=== PATIENT | female | born 1960 | race Caucasian/White ===

== ENCOUNTER 2017-06-04 14:00 | Emergency (ER) | payer OTHER ==
[2017-06-04 14:35] VITALS: BP 166/90; PULSE 79; TEMP 98.7; BMI 30.9
[2017-06-04] MEDS ORDERED: KETOROLAC TROMETHAMINE 30 MG/1 ML VIAL IM ONE (15:15)
--- NOTE | 2017-06-04 15:18 | PDOC ---
History of Present Illness - General Chief Complaint: Back Pain Stated Complaint: BACK PAIN Time Seen by Provider: 06/04/17 15:06 History Source: Patient Exam Limitations: No Limitations - History of Present Illness Initial Comments: 06/04/17 15:16 57 yr female with one month or more of pain to her left side shoulder and back radiates to her left chest under her breast. no chest pain no shortness of breath. pt denies any trauma. pt works as a senior quality assurance analyst, states the pain is worse with movement of the arm . 06/04/17 15:58 Severity: reports: mild Pain Location: reports: chest Method of Injury: Yes: unknown Modifying Factors: improves with: None Loss of Consciousness: no loss of consciousness Associated Symptoms (Fall): denies symptoms Past History - Past Medical History Allergies/Adverse Reactions: Allergies Allergy/AdvReac Type Severity Reaction Status Date / Time No Known Allergies Allergy Verified 06/04/17 14:31 Home Medications: Ambulatory Orders Aspirin [ASA -] 81 mg PO DAILY #30 tab.chew 03/28/14 Sitagliptin Phosphate [Januvia -] 50 mg PO ONCE #30 tablet 03/28/14 Amlodipine Besylate 10 mg PO DAILY 06/04/17 Atorvastatin Ca [Lipitor] 20 mg PO HS 06/04/17 Cyclobenzaprine HCl [Flexeril -] 5 mg PO TID PRN #21 tablet 06/04/17 Lisinopril/Hydrochlorothiazide [Lisinopril-Hctz 20-12.5 mg Tab] 1 each PO DAILY 06/04/17 Naproxen [Naprosyn -] 500 mg PO BID PRN #14 tablet 06/04/17 Diabetes: Yes HTN: Yes - Immunization History Immunization Up to Date: Yes - Suicide/Smoking/Psychosocial Hx Smoking Status: No Smoking History: Never smoked Have you smoked in the past 12 months: No Number of Cigarettes Smoked Daily: 0 Information on smoking cessation initiated: No Hx Alcohol Use: No Drug/Substance Use Hx: No Substance Use Type: None *Physical Exam - Vital Signs Last Vital Signs Temp Pulse Resp BP Pulse Ox 98.7 F 79 16 166/90 96 06/04/17 14:32 06/04/17 14:32 06/04/17 14:32 06/04/17 14:32 06/04/17 14:32 - Physical Exam General Appearance: Yes: Nourished, Appropriately Dressed HEENT: positive: EOMI, TALI, Pharynx Normal Neck: positive: Supple. negative: Tender Respiratory/Chest: positive: Lungs Clear, Normal Breath Sounds. negative: Chest Tender Cardiovascular: positive: Regular Rhythm, Regular Rate Gastrointestinal/Abdominal: positive: Normal Bowel Sounds, Soft Musculoskeletal: positive: Normal Inspection, Other (repriducable ttp to the soft tissues to the left shoulder area , trapezius radiates under left side breast ribs , skin intact no rash or redness, no crepitus ). negative: CVA Tenderness (L), Decreased Range of Motion, Muscle Spasm, Vertebral Tenderness Extremity: positive: Normal Capillary Refill, Normal Inspection, Normal Range of Motion Integumentary: positive: Normal Color, Dry, Warm Neurologic: positive: Fully Oriented, Alert, Normal Mood/Affect, Normal Response , Motor Strength 01/07 ED Treatment Course - RADIOLOGY Radiology Studies Ordered: Category Date Time Status CHEST PA & LAT [RAD] Stat Radiology 06/04/17 15:15 Ordered RIBS-LEFT SIDE [RAD] Stat Radiology 06/04/17 15:15 Ordered Medical Decision Making - Medical Decision Making 06/04/17 15:17 cc: left sided back to shoulder pain for one month or more no chest pain or fever or SOB pt saw her PMD last week for same 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 pt states she has 1/10 pain now. will dc with flexeril and nsaids. pt has apt June 16 with her PMD for follow up. *DC/Admit/Observation/Transfer Diagnosis at time of Disposition: Muscle spasm of back - Discharge Dispostion Disposition: HOME Condition at time of disposition: Good - Prescriptions Prescriptions: Cyclobenzaprine HCl [Flexeril -] 5 mg PO TID PRN #21 tablet PRN Reason: Muscle Spasms Naproxen [Naprosyn -] 500 mg PO BID PRN #14 tablet PRN Reason: Back Pain - Patient Instructions Additional Instructions: take the muscle relaxant as prescribed take naprosyn for pain as needed avoid heavy lifting or bending return to ER right away if any chest pain, shortness of breath or any worsening pain please call your doctor on Tuesday to make a follow up sooner than June 16 if you can
[2017-06-04] MEDS ORDERED: KETOROLAC TROMETHAMINE 30 MG/1 ML VIAL ONE (15:23)
== END 2017-06-04 16:13 | disposition home or self-care (01) ==
LOC: JERFT 14:00
PROC: 3E0233Z Introduction of Anti-inflammatory into Muscle, Percutaneous Approach (ICD-10-PCS; principal; 2017-06-04)
DX: M62.830 Muscle spasm of back (principal); M79.81 Nontraumatic hematoma of soft tissue; I10 Essential (primary) hypertension; E11.9 Type 2 diabetes mellitus without complications; Z79.84 Long term (current) use of oral hypoglycemic drugs
CPT/HCPCS: 71020-TC; 71101-TC; 96372; 99281-25

== ENCOUNTER 2017-08-01 08:33 | Emergency (ER) | payer OTHER ==
[2017-08-01 08:44] VITALS: TEMP 98.2; BMI 35.2
--- NOTE | 2017-08-01 08:51 | PDOC ---
Attending Attestation - Resident Resident Name: Owen Arce - HPI HPI: 08/01/17 10:50 Pt presents to the ED complaining of vertigo that is positional and accompanied by nausea without vomiting. Denies other complaints except for chest pain that has been persistent and unchanged for three months. - Physicial Exam PE: 08/01/17 10:51 Agree with resident exam. patient is neurologically intact and ambulatory with steady gait. - Medical Decision Making 08/01/17 10:51 Pt presents to the ED complaining of vertigo. Improved after meclizine. Will discharge home with instructions to follow up with his PMD. Will rx for meclizine.
--- NOTE | 2017-08-01 09:15 | PDOC ---
History of Present Illness - General Chief Complaint: Lightheaded Stated Complaint: DIZZINESS Time Seen by Provider: 08/01/17 08:48 - History of Present Illness Initial Comments: 08/01/17 08:48 Ms. Valdez is a 57 yo female w/ pmh of DM and HTN who presents c/o 1 day history of dizziness that she says feels like the world is spinning. She also reports 1 week of pain to her left upper chest for which she has previously been evaluated at [facility] (approx. 1 week ago) and told was musculoskeletal pain. On interview she also admits to a similar episode to this 3 years ago. She also relates recent urinary urgency. The patient denies chest pain, shortness of breath, headache and dizziness. Denies fever, chills, nausea, vomit, diarrhea and constipation. Denies dysuria, urgency and hematuria. Allergies: NKDA Past History - Past Medical History Allergies/Adverse Reactions: Allergies Allergy/AdvReac Type Severity Reaction Status Date / Time No Known Allergies Allergy Verified 08/01/17 08:44 Home Medications: Ambulatory Orders Aspirin [ASA -] 81 mg PO DAILY #30 tab.chew 03/28/14 Amlodipine Besylate 5 mg PO DAILY 06/04/17 Atorvastatin Ca [Lipitor] 20 mg PO HS 06/04/17 Lisinopril/Hydrochlorothiazide [Lisinopril-Hctz 20-12.5 mg Tab] 1 each PO DAILY 06/04/17 Meclizine HCl [Verticalm] 25 mg PO DAILY #7 tablet 08/01/17 Sitagliptin Phosphate [Januvia -] 100 mg PO ONCE 08/01/17 COPD: No Diabetes: Yes HTN: Yes Other medical history: vertigo - Immunization History Immunization Up to Date: Yes - Suicide/Smoking/Psychosocial Hx Smoking Status: No Smoking History: Never smoked Have you smoked in the past 12 months: No Number of Cigarettes Smoked Daily: 0 Information on smoking cessation initiated: No Hx Alcohol Use: No Drug/Substance Use Hx: No Substance Use Type: None Review of Systems - Review of Systems Comments:: 08/01/17 09:16 GENERAL/CONSTITUTIONAL: No fever or chills. No weakness. HEAD, EYES, EARS, NOSE AND THROAT: No change in vision. No ear pain or discharge. No sore throat. CARDIOVASCULAR: No chest pain or shortness of breath RESPIRATORY: No cough, wheezing, or hemoptysis. GASTROINTESTINAL: No nausea, vomiting, diarrhea or constipation. GENITOURINARY: No dysuria, frequency, or change in urination. MUSCULOSKELETAL: +Left arm/shoulder pain with movement. No joint or muscle swelling or pain. No neck or back pain. SKIN: No rash NEUROLOGIC: +Dizziness as described. No headache, vertigo, loss of consciousness , or change in strength/sensation. ENDOCRINE: No increased thirst. No abnormal weight change HEMATOLOGIC/LYMPHATIC: No anemia, easy bleeding, or history of blood clots. ALLERGIC/IMMUNOLOGIC: No hives or skin allergy. *Physical Exam - Vital Signs Last Vital Signs Temp Pulse Resp BP Pulse Ox 98.2 F 83 18 168/84 97 08/01/17 08:40 08/01/17 08:40 08/01/17 08:40 08/01/17 08:40 08/01/17 08:40 - Physical Exam Comments: 08/01/17 09:20 GENERAL: Awake, alert, and fully oriented, in no acute distress HEAD: No signs of trauma, normocephalic, atraumatic EYES: PERRLA, EOMI, sclera anicteric, conjunctiva clear ENT: Auricles normal inspection, hearing grossly normal, nares patent, oropharynx clear without exudates. Moist mucosa NECK: Normal ROM, supple, no lymphadenopathy, JVD, or masses LUNGS: No distress, speaks full sentences, clear to auscultation bilaterally HEART: Regular rate and rhythm, normal S1 and S2, no murmurs, rubs or gallops, peripheral pulses normal and equal bilaterally. ABDOMEN: Soft, nontender, normoactive bowel sounds. No guarding, no rebound. No masses EXTREMITIES: +Pain with palpation of left upper arm / shoulder. Normal inspection, Normal range of motion, no edema. No clubbing or cyanosis. NEUROLOGICAL: Cranial nerves II through XII grossly intact. Normal speech, normal gait, no focal sensorimotor deficits SKIN: Warm, Dry, normal turgor, no rashes or lesions noted. ED Treatment Course - LABORATORY CBC & Chemistry Diagram: 08/01/17 09:45 08/01/17 09:45 Medical Decision Making - Medical Decision Making 08/01/17 09:26 Ms. Valdez presents w/ acute symptoms of vertigo. Will r/o acute causes of exacerbation and treat accordingly 08/01/17 10:50 Labs grossly wnl as below. Patient had some relief w/ oral meclizine, will provide temporary Rx and have follow-up with PCP for future needs. Patient verbalized understanding. *DC/Admit/Observation/Transfer Diagnosis at time of Disposition: Vertigo - Discharge Dispostion Disposition: HOME - Prescriptions Prescriptions: Meclizine HCl [Verticalm] 25 mg PO DAILY #7 tablet - Referrals - Patient Instructions Printed Discharge Instructions: DI for Vertigo Additional Instructions: Please return if any continuation or increase in dizziness, fever, or pain. - Post Discharge Activity
[2017-08-01] MEDS ORDERED: MECLIZINE HCL 25 MG TABLET (FP) PO ONE (09:18)
[2017-08-01] MEDS ORDERED: MECLIZINE HCL 25 MG TABLET (FP) ONE (09:30)
[2017-08-01] MEDS ORDERED: MECLIZINE HCL 12.5 MG TABLET ONE (09:31)
[2017-08-01 09:50] LABS: BASOPHIL 0.8 % (0-2.0); EOSINOPHIL 0.9 % (0-4.5); MCH 28.5 pg (25.7-33.7); MCHC 33.1 g/dl (32.0-36.0); MEAN CELL VOLUME 86.1 fl (80-96); MEAN PLT VOLUME 7.3 fl (7.5-11.1); NEUTROPHILS 71.2 % (42.8-82.8); PLATELET COUNT 331 K/MM3 (134-434)
[2017-08-01 10:15] LABS: ALBUMIN 4.2 g/dl (3.4-5.0); ANION GAP 6 (8-16); BILIRUBIN,TOTAL 0.6 mg/dL (0.2-1.0); CO2 31 mmol/L (21-32); CREATININE 0.6 mg/dL (0.55-1.02); GLUCOSE,RANDOM 182 mg/dL (74-106); SGOT/AST 18 U/L (15-37); SGPT/ALT 33 U/L (12-78); TOT PROT 8.4 g/dl (6.4-8.2)
[2017-08-01 10:18] LABS: ALK PHOS 125 U/L (45-117); CPK 67 IU/L (26-192); TROPONIN I < 0.02 ng/ml (0.00-0.05)
[2017-08-01 10:21] LABS: URINE APPEARANCE CLEAR; URINE BILIRUBIN NEGATIVE (NEGATIVE); URINE BLOOD NEGATIVE (NEGATIVE); URINE COLOR STRAW; URINE GLUCOSE (UA) NEGATIVE (NEGATIVE); URINE KETONE NEGATIVE (NEGATIVE); URINE NITRITE NEGATIVE (NEGATIVE); URINE PROTEIN NEGATIVE (NEGATIVE); URINE UROBILINOGEN NEGATIVE mg/dL (0.2-1.0)
[2017-08-01 11:21] VITALS: BP 139/84; PULSE 74
--- NOTE | 2017-08-01 13:34 | EKG ---
Test Reason : Blood Pressure : / mmHG Vent. Rate : 067 BPM Atrial Rate : 067 BPM P-R Int : 186 ms QRS Dur : 090 ms QT Int : 406 ms P-R-T Axes : -10 -18 020 degrees QTc Int : 429 ms NORMAL SINUS RHYTHM ANTEROSEPTAL INFARCT (CITED ON OR BEFORE 27-MAR-2014) ABNORMAL ECG WHEN COMPARED WITH ECG OF 27-MAR-2014 06:03, NO SIGNIFICANT CHANGE WAS FOUND Confirmed by ANNIA MITCHELL, CHACE ([id number]) on 08/01/2017 1:34:05 PM Referred By: Confirmed By:CHACE MILNER MD
[2017-08-01 16:55] LABS: URINE LEUK ESTERASE Negative (NEGATIVE)
== END 2017-08-01 11:21 | disposition home or self-care (01) ==
LOC: JER 08:33
DX: R42 Dizziness and giddiness (principal); I10 Essential (primary) hypertension; E11.9 Type 2 diabetes mellitus without complications; Z79.84 Long term (current) use of oral hypoglycemic drugs
CPT/HCPCS: 36415; 80053; 81003; 82550; 84484; 85025; 93005; 93010; 99282-25

== ENCOUNTER 2019-01-06 00:10 | Emergency (ER) | payer OTHER ==
[2019-01-06 00:48] VITALS: BP 148/90; PULSE 87; TEMP 98.3; BMI 83.9
[2019-01-06] MEDS ORDERED: IBUPROFEN 600 MG TABLET (FP) PO ONE ×2 (00:49→00:53)
[2019-01-06] MEDS ORDERED: ACETAMINOPHEN 325 MG TABLET (FP) PO ONE (00:49)
[2019-01-06] MEDS ORDERED: ACETAMINOPHEN 325 MG TABLET (FP) ONE (00:54)
--- NOTE | 2019-01-06 01:28 | PDOC ---
Documentation entered by Janae Isidro SCRIBE, acting as scribe for Anastacia Hernandez MD. Anastacia Hernandez MD: This documentation has been prepared by the Dwaine brian Adrianna, SCRIBE, under my direction and personally reviewed by me in its entirety. I confirm that the documentation accurately reflects all work, treatment, procedures, and medical decision making performed by me. History of Present Illness - General Chief Complaint: Pain Stated Complaint: PAIN Time Seen by Provider: 01/06/19 00:38 History Source: Patient, Family Exam Limitations: No Limitations - History of Present Illness Initial Comments: 58 Y F, with pmh of DM, HTN, and vertigo, presenting with LLE pain. Patient notes the pain has been going on for a couple months, most prominent on the medial and lateral thigh, and described as burning sensation. She denies any trauma, twisting, or pulling of the LLE. Patient admits to seeing her PCP for this issue, who told her it was secondary to her DM and benign. She notes trying tylenol, motrin, and ibuprofen without relief. Denies fever, chills, SOB, palpitation, dizziness, weakness, N, V, D, abdominal pain, bladder and bowel problems, No sick contacts or travel. No new changes in medications. no prolonged immobilization or travel Allergies: None Past Medical History: DM, HTN, vertigo Social history: Lives with family. No tobacco, ETOH or drug use. Surgical history: None reported Meds: as documented in EMR PMD: Dr. Tyra Craig 01/06/19 01:11 01/06/19 01:23 Past History - Past Medical History Allergies/Adverse Reactions: Allergies Allergy/AdvReac Type Severity Reaction Status Date / Time No Known Allergies Allergy Verified 01/06/19 00:48 Home Medications: Ambulatory Orders Aspirin [ASA -] 81 mg PO DAILY #30 tab.chew 03/28/14 Amlodipine Besylate 5 mg PO DAILY 06/04/17 Atorvastatin Ca [Lipitor] 20 mg PO HS 06/04/17 Lisinopril/Hydrochlorothiazide [Lisinopril-Hctz 20-12.5 mg Tab] 1 each PO DAILY 06/04/17 Meclizine HCl [Verticalm] 25 mg PO DAILY #7 tablet 08/01/17 Sitagliptin Phosphate [Januvia -] 100 mg PO ONCE 08/01/17 COPD: No Diabetes: Yes HTN: Yes - Immunization History Immunization Up to Date: Yes - Suicide/Smoking/Psychosocial Hx Smoking Status: No Smoking History: Never smoked Have you smoked in the past 12 months: No Number of Cigarettes Smoked Daily: 0 Information on smoking cessation initiated: No Hx Alcohol Use: No Drug/Substance Use Hx: No Substance Use Type: None Review of Systems - Review of Systems Comments:: Constitutional: no fevers or chills. HEENT: no headache or dizziness. No congestion. No visual/hearing disturbances. CVS: no cp or syncope. Resp: no sob. No cough. Gastrointestinal: no abdominal pain, nausea or vomiting. Genitourinary: no urinary sx, hematuria. MUSCULOSKELETAL: +LLE inner and lateral thigh burning pain with mild swelling. No neck or back pain. SKIN: no redness or skin changes, no discharge, no rash. No wounds. Hematologic: no easy bruising/bleeding. NEUROLOGIC: No headache, dizziness, LOC or altered mental status. No weakness, numbness or tingling. Psych: no anxiety or depression Allergic/Immunologic: no allergies All other systems reviewed and negative, or as documented in HPI. 01/06/19 01:11 *Physical Exam - Vital Signs Last Vital Signs Temp Pulse Resp BP Pulse Ox 98.3 F 87 20 148/90 96 01/06/19 00:47 01/06/19 00:47 01/06/19 00:47 01/06/19 00:47 01/06/19 00:47 - Physical Exam Comments: General: Well appearing, awake and alert, NAD. HEENT: NCAT, PERRL, EOMI, clear conjunctiva, anicteric, moist mucous membranes , clear oropharynx Neck: neck supple, FROM Resp: CTAB, normal and even respirations, no respiratory distress CVS: RRR, no murmurs, 2+ peripheral pulses throughout, no peripheral edema Abdomen: soft, NTND, no peritoneal signs. Back: nontender, normal inspection and ROM MSK: +Tender to palpation over the left inner and later thigh. No calf tenderness. no edema, OLIVARES x4, ROM intact. No clubbing or cyanosis. normal bulk and tone. soft compartments. Neuro: alert, no focal neuro deficits. NVI. ambulatory, gait stable. Skin: warm and well perfused, cap refill <2 sec, normal color 01/06/19 01:11 01/06/19 01:24 ED Treatment Course - RADIOLOGY Radiology Studies Ordered: Category Date Time Status DUPLEX VASCUL US-1 LEG [US] Stat Ultrasound 01/06/19 00:49 Ordered Medical Decision Making - Medical Decision Making 01/06/19 01:25 DDx. arthritis, knee effusion, knee sprain. Sawant's cyst. clinically considered but doubt infection or compartment syndrome, as no skin findings and chronicity of sx w/o systemic findings. no palp joint effusion on exam to warrant tap. no posterior popliteal or deep venous system involvement to suggest DVT or Sawant's cyst/rupture, however does have prox medial leg 'burning sensation. trial analgesia, motrin/tylenol, as she has not taken meds ordered for duplex to eval for DVt, though with history and duration of sx, low suspicion. however, noted at 1:26AM - pt eloped, called several times, checked BR, sono and imaging center, waiting area- multiple times, unable to be found pt eloped from the ED prior to full eval, meds and sono prior to closing time. *DC/Admit/Observation/Transfer Diagnosis at time of Disposition: Thigh pain - Discharge Dispostion Disposition: ELOPED Condition at time of disposition: Stable - Referrals Referrals: Tyra Craig [Primary Care Provider] - - Patient Instructions - Post Discharge Activity
== END 2019-01-06 01:36 | disposition left against medical advice (07) ==
LOC: JER 00:10
DX: M79.662 Pain in left lower leg (principal); I10 Essential (primary) hypertension; E11.9 Type 2 diabetes mellitus without complications; Z79.84 Long term (current) use of oral hypoglycemic drugs; R42 Dizziness and giddiness
CPT/HCPCS: 99282-25

== ENCOUNTER 2021-12-08 17:28 | Emergency (ER) | payer OTHER ==
[2021-12-08 17:49] VITALS: BP 128/77; PULSE 91; TEMP 98.1; BMI 37.0
== END 2021-12-08 18:17 | disposition home or self-care (01) ==
LOC: JERFT 17:28
DX: L30.9 Dermatitis, unspecified (principal)
CPT/HCPCS: 99281-25

== ENCOUNTER 2022-07-20 13:28 | Emergency (ER) | payer OTHER ==
[2022-07-20 13:37] VITALS: BP 158/88; PULSE 88; RESP 16; TEMP 98.3; BMI 59.5
[2022-07-20] MEDS ORDERED: SODIUM CHLORIDE 1,000 ML IV SCH (15:15)
[2022-07-20 16:04] LABS: BASO % 0.7 % (0-2.0); EOS % 1.1 % (0-4.5); HEMATOCRIT 43.7 % (32.4-45.2); HEMOGLOBIN 14.6 GM/dL (10.7-15.3); MCH 28.8 pg (25.7-33.7); MCHC 33.4 g/dl (32.0-36.0); MEAN PLT VOLUME 7.3 fl (7.5-11.1); MONO % 5.7 % (3.8-10.2); NEUT % 60.5 % (42.8-82.8); PLATELET COUNT 369 10^3/uL (134-434); RBC 5.08 M/mm3 (3.60-5.2); RDW 13.4 % (11.6-15.6); WHITE BLOOD COUNT 9.9 K/mm3 (4.0-10.0)
[2022-07-20 16:16] LABS: ACTIVATED PTT 35.4 SECONDS (25.2-36.5); INR 1.03 (0.83-1.09); PROTHROMBIN TIME (PATIENT) 11.8 SEC (9.7-13.0)
[2022-07-20 16:35] LABS: CHLORIDE 102 mmol/L (98-107); SODIUM 140 mmol/L (136-145)
[2022-07-20 16:36] LABS: CALCIUM 9.6 mg/dL (8.5-10.1)
[2022-07-20 16:37] LABS: ALBUMIN 4.1 g/dl (3.4-5.0); ANION GAP 6 MMOL/L (8-16); CO2 32 mmol/L (21-32)
[2022-07-20 16:38] LABS: BLOOD UREA NITROGEN 17.8 mg/dL (7-18); GLUCOSE,RANDOM 127 mg/dL (74-106)
[2022-07-20 16:40] LABS: CREATININE 0.7 mg/dL (0.55-1.3); SGOT/AST 17 U/L (15-37); SGPT/ALT 30 U/L (13-61)
[2022-07-20 16:42] LABS: CHOLESTEROL 195 mg/dL (50-200); TOT PROT 7.9 g/dl (6.4-8.2); TRIGLYCERIDES 176 mg/dL (0-150)
[2022-07-20 16:43] LABS: BILIRUBIN,TOTAL 0.5 mg/dL (0.2-1); LDL CHOLESTEROL (ONLY SJRH) 126 mg/dL (5-100)
[2022-07-20 16:44] LABS: ALK PHOS 114 U/L (45-117); HDL CHOLESTEROL 48 mg/dL (40-60)
[2022-07-20 17:17] LABS: PH,URINE 6.5 (5.0-8.0); URINE APPEARANCE CLEAR; URINE BILIRUBIN NEGATIVE (NEGATIVE); URINE COLOR YELLOW; URINE GLUCOSE (UA) NEGATIVE (NEGATIVE); URINE KETONE NEGATIVE (NEGATIVE); URINE LEUK ESTERASE NEGATIVE (NEGATIVE); URINE NITRITE NEGATIVE (NEGATIVE); URINE PROTEIN NEGATIVE (NEGATIVE); URINE UROBILINOGEN 0.2 mg/dL (0.2-1.0)
[2022-07-20] MEDS ORDERED: predniSONE 20 MG TABLET (UD) PO ONE (17:56)
[2022-07-20] MEDS ORDERED: valACYclovir HCL 1000 MG TABLET PO ONE (17:56)
[2022-07-20] MEDS ORDERED: DOXYCYCLINE INJECTION 100 MG in DEXTROSE 5%-WATER 100 ML IVPB ONE (17:57)
[2022-07-20] MEDS ORDERED: valACYclovir HCL 500 MG TABLET (FP) ONE (18:00)
[2022-07-20] MEDS ORDERED: predniSONE 20 MG TABLET (UD) ONE (18:00)
[2022-07-20] MEDS ORDERED: DOXYCYCLINE HYCLATE 100 MG VIAL ONE (18:01)
== END 2022-07-20 19:30 | disposition left against medical advice (07) ==
LOC: JER 13:28
DX: H93.8X2 Other specified disorders of left ear (principal); H92.02 Otalgia, left ear; R29.810 Facial weakness
CPT/HCPCS: 0241U-QW; 36415; 70450-TC; 80053; 80061; 81003; 82550; 83036; 84484; 85025; 85610; 85730; 86618; 86850; 86900; 86901; 93005; 93010; 99285-25